=== PATIENT | male | born 1995 | race Caucasian/White ===

== ENCOUNTER 2017-05-30 18:07 | Emergency (ER) | payer OTHER ==
[2017-05-30 18:13] VITALS: RESP 18
--- NOTE | 2017-05-30 18:33 | EDPHY ---
H & P Time Seen by Provider: 05/30/17 18:19 HPI/ROS: CHIEF COMPLAINT: Sore throat HISTORY OF PRESENT ILLNESS: Patient is a 21-year-old male who presents emergency department with sore throat, chills and difficulty breathing. He was seen at work earlier today and sent to the emergency department to rule out peritonsillar abscess. Patient had a negative strep screen at work. Patient states that his throat started hurting this morning. The right side of his throat is more uncomfortable than the left. Patient states that he has increased pain with swallowing. He has also noticed pus in the back of his throat. Triage states that he has had breathing but the patient states that he is able to move air. He has been controlling his secretions. He reports having a fever and chills. No abdominal pain. No nausea or vomiting. REVIEW OF SYSTEMS: My complete review of systems is negative except as mentioned in the HPI. Past Medical/Surgical History: Negative Past surgical history: Negative Social history: The patient smokes. Smoking Status: Current every day smoker Physical Exam: 36.8, 111/70, 110, 18, 98% on room air GENERAL: No acute distress, alert. Normal voice. HEENT: Eyes normal to inspection. The patient has bilateral tonsillar swelling. These appear symmetric. Uvula is midline. There is no shift. Patient does have pus discharge surrounding his tonsils. There are multiple small red colored lesions. No ulcerations. The airway appears open. Of note, the patient opens his mouth I am able to see the tip of his epiglottis. No signs of dehydration. NECK: No thyromegaly, no lymphadenopathy, supple. RESPIRATORY: Clear to auscultation bilaterally, no rales, rhonchi or wheezing. CVS: Regular rate and rhythm, no rubs, murmurs, or gallops. ABDOMEN: Soft, nontender, nondistended, no organomegaly. BACK: Normal to inspection, no CVA tenderness. SKIN: Normal color, no rash, warm, dry. No pallor. EXTREMITIES: No pedal edema, no calf tenderness, no Homans sign or cords, no joint swelling. NEURO/PSYCH: Alert and oriented, normal mood and affect, normal motor sensory exam. Constitutional: Initial Vital Signs Temperature (C) 36.8 C 05/30/17 18:10 Heart Rate 110 H 05/30/17 18:10 Respiratory Rate 18 05/30/17 18:10 Blood Pressure 111/70 05/30/17 18:10 O2 Sat (%) 98 05/30/17 18:10 O2 Delivery Mode Room Air Allergies/Adverse Reactions: Sulfa (Sulfonamide Antibiotics) Allergy (Verified 05/30/17 18:08) Home Medications: Medication Instructions Recorded Advil 05/30/17 Amoxicillin/Clavulanate Pot 875 mg PO BID 10 Days tab 05/30/17 [Augmentin 875 mg tab] Hydrocodone/APAP 5/325 [Crosby 1 - 2 tab PO Q4 #9 tab 05/30/17 5/325 (RX)] Medical Decision Making ED Course/Re-evaluation: In the emergency department I met the patient on arrival. After my evaluation I discussed possible etiologies with the patient. At this time, I do not see obvious signs of peritonsillar retropharyngeal abscess. I discussed this with the patient. Patient will be given Decadron 10 mg orally. Patient was given Augmentin 875 g orally. Patient was given a prescription of Augmentin. Will follow up with ENT. He will return emergency department worsening symptoms. He was given warnings prior to leaving. Differential Diagnosis: My differential includes but is not limited to pharyngitis, peritonsillar abscess, retropharyngeal abscess, bacteremia, sepsis Departure - Departure Disposition: Home, Routine, Self-Care Clinical Impression: Pharyngitis Qualifiers: Pharyngitis/tonsillitis etiology: unspecified etiology Qualified Code(s): J02.9 - Acute pharyngitis, unspecified Condition: Good Instructions: Pharyngitis (ED) Additional Instructions: Take your antibiotics as directed. Return with increased swelling, asymmetric swelling, difficulties breathing or any other concerns. Referrals: Capri Jackson MD [Medical Doctor] - 2-3 days, call for appt. Prescriptions: Amoxicillin/Clavulanate Pot [Augmentin 875 mg tab] 875 mg PO BID 10 Days tab Hydrocodone/APAP 5/325 [Crosby 5/325 (RX)] 1 - 2 tab PO Q4 #9 tab
[2017-05-30] MEDS ORDERED: AMOXICILLIN/CLAVULANATE POT 875/125 MG TAB PO ONE (18:38)
[2017-05-30] MEDS ORDERED: DEXAMETHASONE 4 MG TAB PO ONE (18:38)
[2017-05-30 18:55] VITALS: BP 120/69; PULSE 95; TEMP 98.6; O2SAT 99
== END 2017-05-30 18:58 | disposition home or self-care (01) ==
DX: J02.9 Acute pharyngitis, unspecified (principal); F17.200 Nicotine dependence, unspecified, uncomplicated

== ENCOUNTER → 2018-01-31 | Outpatient (CLI) | payer OTHER | LOC: FIMAGING 10:45 | PROVIDERS: ATTEND Internal Medicine Pulmonary Disease | DX: J45.909 Unspecified asthma, uncomplicated (principal); R07.89 Other chest pain ==